=== PATIENT | female | born 1985 | race Caucasian/White ===

== ENCOUNTER 2022-11-23 09:00 | Inpatient (IN) | payer SELFPAY ==
[~2022-11-23] VITALS: Ht 160 cm; Wt 86.2 kg
[2022-11-23 09:11] VITALS: BP 126/82
--- NOTE | 2022-11-23 09:28 | NUR ---
37 Y/O FEMALE BIB SELF C/O RIGHT SIDED LOW BACK PAIN RADIATING TO THE RIGHT FLANK AND LEG. STATES THAT THIS PAIN HAS OCCURED BEFORE 1 YEAR AGO. TOOK IBUPROFEN 800MG AND DICLOFENAC W/ B VITAMIN INJECTIONS FOR PAIN WITH NO RELIEF. DENIES ANY URINARY S/S. STATES THAT SHE HAD A "REDDISH MAYBE" BOWEL MOVEMENT YESTERDAY. DENIES ANY TRAUMA/INJURY ALLERGY: SUDAFED PMH: DENIES
[2022-11-23] MEDS ORDERED: MORPHINE SULFATE 4 MG/ML SYR IVP ONE ×2 (09:35→10:55)
[2022-11-23] MEDS ORDERED: ONDANSETRON 4 MG/2 ML VIAL IVP ONE (09:40)
[2022-11-23 09:51] LABS: BASOPHILS # (AUTO) 0.1 K/uL (0.00-0.22); BASOPHILS % (AUTO) 0.8 % (0.0-2.0); EOSINOPHILS # (AUTO) 0.2 K/uL (0-0.4); EOSINOPHILS % (AUTO) 1.9 % (0.0-4.0); HEMATOCRIT 37.3 % (36-48); HEMOGLOBIN 12.5 g/dL (12.0-16.0); LYMPHOCYTES # (AUTO) 2.4 K/uL (2.5-16.5); LYMPHOCYTES % (AUTO) 22.5 % (20.5-51.1); MEAN CORPUSCULAR HEMOGLOBIN 24 pg (27-31); MEAN CORPUSCULAR HGB CONC 33 g/dL (33-37); MEAN CORPUSCULAR VOLUME 73.1 fL (80-94); MONOCYTES # (AUTO) 0.5 K/uL (0.8-1.0); MONOCYTES % (AUTO) 4.8 % (1.7-9.3); NEUTROPHILS # (AUTO) 7.5 K/uL (1.8-7.7); PLATELET COUNT (AUTO) 335 K/uL (140-450); RED BLOOD CELL COUNT(AUTO) 5.11 MIL/uL (4.20-5.40); RED CELL DISTRIBUTION WIDTH 16.4 % (11.6-13.7); WHITE BLOOD COUNT (AUTO) 10.7 K/uL (4.8-10.8)
--- NOTE | 2022-11-23 10:13 | NUR ---
PT UNABLE TO PROVIDE URINE AT THIS TIME D/T PAIN
[2022-11-23 10:23] LABS: ANION GAP 14.3 (8-16); CARBON DIOXIDE 25.1 mmol/L (21-32); CREATININE 0.7 mg/dL (0.6-1.3); POTASSIUM 4.4 mmol/L (3.5-5.1); TOTAL BILIRUBIN 0.4 mg/dL (0.0-1.0)
--- NOTE | 2022-11-23 10:35 | NUR ---
AMBULATED TO BATHROOM WITH STEADY GAIT
--- NOTE | 2022-11-23 10:43 | NUR ---
URINE WALKED TO LAB
--- NOTE | 2022-11-23 10:49 | NUR ---
PT TAKEN TO CT
[2022-11-23] MEDS ORDERED: NACL 0.9% 1,000 ML IV ONE ×2 (10:55→15:05)
[2022-11-23 10:57] LABS: APPEARANCE,URINE CLEAR (CLEAR); BILIRUBIN,URINE NEGATIVE (NEGATIVE); BLOOD, URINE 1+ (NEGATIVE); COLOR,URINE YELLOW (YELLOW); LEUKOCYTE ESTERASE ,URINE TRACE (NEGATIVE); NITRITE, URINE NEGATIVE (NEGATIVE); UGLUCOSE NEGATIVE (NEGATIVE)
[2022-11-23 11:07] LABS: RBC,URINE 0-5 /HPF (0-5); WBC,URINE 0-5 /HPF (0-5)
--- NOTE | 2022-11-23 11:25 | NUR ---
PT STATES DECREASE IN PAIN SENSATION, NOTED IN BED, HOB ADJUSTED FOR COMFORT, RESPIRATIONS EVEN AND UNLABORED
--- NOTE | 2022-11-23 12:22 | NUR ---
LAB AT BEDSIDE FOR BLOOD CULTURES
[2022-11-23] MEDS ORDERED: cefTRIAXone 1,000 MG VIAL ONE (12:23)
[2022-11-23] MEDS ORDERED: guaiFENesin DM 200/20 MG-10 ML 10 ML UDC PO PRN (13:40)
[2022-11-23] MEDS ORDERED: ZOLPIDEM 5 MG TAB PO PRN (13:40)
[2022-11-23] MEDS ORDERED: ACETAMINOPHEN 325 MG TAB PO PRN (13:40)
[2022-11-23] MEDS ORDERED: POTASSIUM CHLORIDE 10 MEQ TABER PO PRN (13:40)
[2022-11-23] MEDS ORDERED: DOCUSATE SODIUM 100 MG GELCAP PO PRN (13:40)
[2022-11-23] MEDS ORDERED: ONDANSETRON 4 MG/2 ML VIAL IM/IVP PRN (13:40)
[2022-11-23] MEDS: NACL 0.9% 1,000 ML IV SCH ×2 (13:52→21:41)
--- NOTE | 2022-11-23 14:01 | NUR ---
PT GIVEN SANDWICH, JUICE AND WATER
[2022-11-23 14:10] LABS: PROTHROMBIN TIME 9.7 secs (10.8-13.4)
[2022-11-23 14:16] LABS: CHOL/HDL RATIO 3.9 (1-4.5); FREE T4 (FREE THYROXINE) 1.6 ng/dL (0.76-1.46); MAGNESIUM 1.3 mg/dL (1.8-2.4); PHOSPHORUS 2.8 mg/dL (2.5-4.9); THYROID STIMULATING HORMONE 8.19 uIU/mL (0.34-3.74)
--- NOTE | 2022-11-23 17:52 | NUR ---
DINNER SERVED, HOB ELEVATED
--- NOTE | 2022-11-23 19:26 | NUR ---
Pt report given to pat herr. Transfer of care at this time.
--- NOTE | 2022-11-23 20:05 | NUR ---
TO [facility] VIA W/C.
[2022-11-23 20:20] VITALS: BP_SYST 112; BP_SYST 128; BP_DIAS 61; BP_DIAS 75
--- NOTE | 2022-11-23 20:20 | NUR ---
RECEIVED PT FROM ER A NEW ADMIT. PATIENT IS AWAKE,ALERT AND ORIENTED. DENIES PAIN AT THIS TIME. DENIES SHORTNESS OF BREATH. SKIN WARM AND DRY TO TOUCH. SAFETY PRECAUTION IN PLACE, CALL LIGHT IN REACH.
[2022-11-23] MEDS ORDERED: MAG SULF 2000 MG/WATER PREMIX 50 ML IV ONE (20:30)
[2022-11-24] VITALS: BP 119/74
[2022-11-24] MEDS: NACL 0.9% 1,000 ML IV SCH ×3 (05:40→17:53)
[2022-11-24 06:18] LABS: BASOPHILS % (AUTO) 0.4 % (0.0-2.0); EOSINOPHILS # (AUTO) 0.4 K/uL (0-0.4); EOSINOPHILS % (AUTO) 4.3 % (0.0-4.0); HEMATOCRIT 31.9 % (36-48); HEMOGLOBIN 10.7 g/dL (12.0-16.0); LYMPHOCYTES # (AUTO) 3.1 K/uL (2.5-16.5); MEAN CORPUSCULAR HEMOGLOBIN 25 pg (27-31); MEAN CORPUSCULAR HGB CONC 33 g/dL (33-37); MEAN CORPUSCULAR VOLUME 73.2 fL (80-94); MONOCYTES # (AUTO) 0.5 K/uL (0.8-1.0); NEUTROPHILS # (AUTO) 4.6 K/uL (1.8-7.7); NEUTROPHILS % (AUTO) 53.3 % (42.2-75.2); PLATELET COUNT (AUTO) 268 K/uL (140-450); RED BLOOD CELL COUNT(AUTO) 4.35 MIL/uL (4.20-5.40); RED CELL DISTRIBUTION WIDTH 16.6 % (11.6-13.7); WHITE BLOOD COUNT (AUTO) 8.6 K/uL (4.8-10.8)
--- NOTE | 2022-11-24 06:19 | NUR ---
PATIENT IS ASLEEP. NO S/SX OF PAIN NOR DISCOMFORT. ALL NEEDS ATTENDED TO. SAFETY PRECAUTIONS IN PLACE, CALL LIGHT IN REACH.
[2022-11-24 06:20] LABS: ANION GAP 10.4 (8-16); CARBON DIOXIDE 24.9 mmol/L (21-32); CREATININE 0.6 mg/dL (0.6-1.3); POTASSIUM 4.3 mmol/L (3.5-5.1)
--- NOTE | 2022-11-24 07:20 | NUR ---
RECEIVED REPORT FROM PETE NURSE MINDA FOR CONTINUITY OF CARE. INITIAL ASSESSMENT DONE. IVF INFUSING WELL. NOT IN ANY DISTRESS NOTED. CALL LIGHT KEPT WITHIN REACH. WILL CONTINUE TO MONITOR.
[2022-11-24 08:00] VITALS: BP 110/60
[2022-11-24 08:08] LABS: T4 (THYROXINE) 6.4 ug/dL (4.5-12.0)
[2022-11-24] MEDS: PANTOPRAZOLE 40 MG TABEC PO SCH (08:13)
--- NOTE | 2022-11-24 08:13 | NUR ---
SCHEDULED MEDICATIONS GIVEN. TOLERATING WELL.
[2022-11-24] MEDS: HYDROcodone/APAP 7.5/325 MG 1 TAB PO PRN ×2 (08:17→19:10)
--- NOTE | 2022-11-24 08:17 | NUR ---
PRN NORCO WAS GIVEN FOR PAIN MANAGEMENT. TOLERATING WELL.
--- NOTE | 2022-11-24 10:52 | NUR ---
PATIENT HAS BEEN SCREENED AND CATEGORIZED LOW NUTRITION RISK. PATIENT WILL BE SEEN WITHIN 7 DAYS OF ADMISSION. 11/30/[address]
--- NOTE | 2022-11-24 13:52 | NUR ---
SCHEDULED IV ABT WAS GIVEN BY BROOKLYN BROWN. TOLERATING WELL.
[2022-11-24 16:00] VITALS: BP 129/71
--- NOTE | 2022-11-24 19:10 | NUR ---
RECEIVED PT IN BED, AWAKE, ALERT AND ORIENTED X 4. COMPLAINING OF LOWER BACK PAIN /, MEDICATED ORDERED. DENIES SHORTNESS OF BREATH. SKIN WARM AND DRY TO TOUCH. IVF INFUSING WELL ORDERED. SAFETY PRECAUTION IN PLACE, CALL LIGHT IN REACH.
--- NOTE | 2022-11-24 19:20 | NUR ---
REPORT GIVEN TO MINDA FOR CONTINUITY OF CARE. REMAINS STABLE.
--- NOTE | 2022-11-24 20:10 | NUR ---
RE-ASSESSED FOR PAIN, PATIENT DENIES PAIN AT THIS TIME.
[2022-11-25] VITALS: BP 95/53
[2022-11-25] MEDS: NACL 0.9% 1,000 ML IV SCH ×2 (00:56→13:40)
[2022-11-25 06:26] LABS: ANION GAP 11.4 (8-16); CREATININE 0.6 mg/dL (0.6-1.3); POTASSIUM 4.4 mmol/L (3.5-5.1)
--- NOTE | 2022-11-25 06:36 | NUR ---
PATIENT IS ASLEEP. ALL NEEDS ATTENDED TO. NO DISTRESS NOTED. SAFETY PRECAUTIONS MAINTAINED DURING THE SHIFT, CALL LIGHT REMAINS WITHIN REACH.
[2022-11-25 06:57] LABS: BASOPHILS % (AUTO) 0.3 % (0.0-2.0); EOSINOPHILS # (AUTO) 0.3 K/uL (0-0.4); EOSINOPHILS % (AUTO) 4.5 % (0.0-4.0); HEMATOCRIT 30.4 % (36-48); HEMOGLOBIN 10.3 g/dL (12.0-16.0); LYMPHOCYTES # (AUTO) 2.8 K/uL (2.5-16.5); LYMPHOCYTES % (AUTO) 37.3 % (20.5-51.1); MEAN CORPUSCULAR HEMOGLOBIN 25 pg (27-31); MEAN CORPUSCULAR HGB CONC 34 g/dL (33-37); MEAN CORPUSCULAR VOLUME 73.3 fL (80-94); MONOCYTES # (AUTO) 0.5 K/uL (0.8-1.0); MONOCYTES % (AUTO) 6.6 % (1.7-9.3); NEUTROPHILS # (AUTO) 3.8 K/uL (1.8-7.7); NEUTROPHILS % (AUTO) 51.3 % (42.2-75.2); PLATELET COUNT (AUTO) 266 K/uL (140-450); RED BLOOD CELL COUNT(AUTO) 4.14 MIL/uL (4.20-5.40); RED CELL DISTRIBUTION WIDTH 16.4 % (11.6-13.7); WHITE BLOOD COUNT (AUTO) 7.4 K/uL (4.8-10.8)
--- NOTE | 2022-11-25 07:13 | NUR ---
RECEIVED REPORT FROM NIGHTSHIFT NURSE MINDA FOR CONTINUITY OF CARE. PT IN STABLE CONDITION.
[2022-11-25 08:00] VITALS: BP 111/69
[2022-11-25] MEDS: PANTOPRAZOLE 40 MG TABEC PO SCH (08:36)
--- NOTE | 2022-11-25 08:37 | NUR ---
PT ENDORSED MILD RIGHT FLANK PAIN 3/10. MEDICATED PRN TYLENOL.
--- NOTE | 2022-11-25 11:40 | NUR ---
SPOKE WITH DR. OLSEN, URINE CULTURE WAS NEGATIVE. MD CLEARED PT FOR DISCHARGE WITH 5 DAYS COURSE OF PO ABX AND OTC PAIN MEDS. PT INFORMED AND ABLE TO GET TRANSPORTATION VIA .
[2022-11-25] MEDS ORDERED: CEPH500T PO (12:38)
--- NOTE | 2022-11-25 12:42 | NUR ---
DISCHARGE ORDER PLACED, UPDATED PT. WAITING FOR TO ARRIVE.
[2022-11-25 13:10] VITALS: BP 111/69
--- NOTE | 2022-11-25 13:30 | NUR ---
REVIEWED AND DISCUSSED PT DISCHARGE PAPERWORK. PT VERBALIZED UNDERSTANDING AND SIGNED ALL FORMS. PT AT THE BEDSIDE.
== END 2022-11-25 13:45 | disposition home or self-care (01) | DRG 872 ==
LOC: MED 09:00 → MTU 13:04 → MMU 18:18
PROVIDERS: ADMIT Family Medicine; ATTEND Family Medicine
DX: A41.9 Sepsis, unspecified organism (principal); N39.0 Urinary tract infection, site not specified; R65.20 Severe sepsis without septic shock; E83.42 Hypomagnesemia; Z20.822 Contact with and (suspected) exposure to COVID-19; Z88.8 Allergy status to other drugs, medicaments and biological substances
CPT/HCPCS: 36415; 80048; 80053; 81001; 82150; 83036; 83605; 83690; 83735; 83880; 84100; 84436; 84439; 84443; 84479; 85025; 85610; 85730; 87040; 87081; 87086; 96361; 96365; 96375; 96376; 99291; J0696; J2270; J2405; J3475; J7060

== ENCOUNTER 2023-11-11 16:36 | Emergency (ER) | payer MEDICAID ==
[~2023-11-11] VITALS: Ht 160 cm; Wt 81.6 kg
[~2023-11-11 16:36] MED LIST: CEPH500T PO
[2023-11-11 16:39] VITALS: BP 153/81; PULSE 95; RESP 18; TEMP 98.6; O2SAT 96
[2023-11-11] MEDS ORDERED: BENZ-379 PO (17:00)
[2023-11-11] MEDS ORDERED: ERYT5OIN51 LEFT EYE (17:00)
[2023-11-11] MEDS ORDERED: VIGOS LEFT EYE (17:13)
== END 2023-11-11 17:15 | disposition home or self-care (01) ==
LOC: MED 16:36
DX: H10.9 Unspecified conjunctivitis (principal); H11.002 Unspecified pterygium of left eye; J20.9 Acute bronchitis, unspecified; Z79.899 Other long term (current) drug therapy; Z88.8 Allergy status to other drugs, medicaments and biological substances
CPT/HCPCS: 99283